=== PATIENT | female | born 1980 | race Caucasian/White ===

== ENCOUNTER 2017-02-22 14:06 | Emergency (ER) | payer OTHER ==
[2017-02-22] MEDS ORDERED: Ketorolac 30 MG/ML SDV IVPUSH ONE (14:28)
[2017-02-22] MEDS ORDERED: Sodium Chloride 0.9% 1,000 ML IV ONE (14:28)
[2017-02-22] MEDS ORDERED: Ondansetron 4 MG/2 ML SDV IVPUSH ONE (14:28)
[2017-02-22] MEDS ORDERED: HYDROmorphone 1 MG/ML Syringe IVPUSH ONE (14:28)
--- NOTE | 2017-02-22 14:36 | EDM.PDOC ---
ED HPI GENERAL MEDICAL PROBLEM - General Chief Complaint: Abdominal Pain Stated Complaint: ABDOMINAL PAIN Time Seen by Provider: 02/22/17 14:10 - History of Present Illness INITIAL COMMENTS - FREE TEXT/NARRATIVE: HISTORY AND PHYSICAL: History of present illness: Patient's age 36-year-old white female presents with concern of significant upper abdominal pain who was sent here by her private medical doctor for reevaluation patient to have outpatient labs that were remarkable for slight leukocytosis with a white count of 15,000 reportedly normal amylase lipase UA and CT abdomen without contrast. Patient is status post cholecystectomy approximately 6 months prior she denies other surgeries and denies similar episodes prior to no reported fever chills nausea vomiting Review of systems: As per history of present illness and below otherwise all systems reviewed and negative. Past medical history: As per history of present illness and as reviewed below otherwise noncontributory. Surgical history: As per history of present illness and as reviewed below otherwise noncontributory. Social history: No reported history of drug or alcohol abuse. Family history: As per history of present illness and as reviewed below otherwise noncontributory. Physical exam: HEENT: Atraumatic, normocephalic, pupils reactive, negative for conjunctival pallor or scleral icterus, mucous membranes moist, throat clear, neck supple, nontender, trachea midline. Lungs: Clear to auscultation, breath sounds equal bilaterally, chest nontender. Heart: S1S2, regular, negative for clicks, rubs, or JVD. Abdomen: Soft, nondistended, nonlocalized tenderness across the upper abdomen no rebound no guarding. Negative for masses or hepatosplenomegaly. Negative for costovertebral tenderness. Pelvis: Stable nontender. Genitourinary: Deferred. Rectal: Deferred. Extremities: Atraumatic, negative for cords or calf pain. Neurovascular unremarkable. Neuro: Awake, alert, oriented. Cranial nerves II through XII unremarkable. Cerebellum unremarkable. Motor and sensory unremarkable throughout. Exam nonfocal. Diagnostics: CBC hCG ultrasound right upper quadrant Therapeutics: Normal saline 1 L bolus Zofran 4 mg IV Dilaudid 1 mg IV Toradol 30 mg IV Impression: #1 abdominal pain #2 leukocytosis Definitive disposition and diagnosis as appropriate pending reevaluation and review of above. Epigastric Pain Score (Numeric/FACES): 10 - Related Data Allergies Allergy/AdvReac Type Severity Reaction Status Date / Time No Known Allergies Allergy Verified 10/03/15 09:22 Home Meds: Home Meds DULoxetine [Cymbalta] 30 mg PO DAILY 02/04/16 [History] Omeprazole Magnesium [Prilosec Otc] 20 mg PO DAILY 02/04/16 [History] Loratadine [Claritin] 1 tab PO DAILY PRN 04/11/16 [History] Gabapentin [Neurontin] 300 mg PO BEDTIME 02/22/17 [History] buPROPion HCl [Wellbutrin Xl] 300 mg PO DAILY 02/22/17 [History] Past Medical History Cardiovascular History: Reports: None Respiratory History: Reports: None Gastrointestinal History: Reports: Cholelithiasis, GERD 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: Musculoskeletal History: Reports: Back pain, chronic, Fracture Neurological History: Reports: None Psychiatric History: Reports: Anxiety, Depression Endocrine/Metabolic History: Reports: Obesity/BMI 30+, Other (see below) Other Endocrine/Metabolic History: low blood surgar at times Hematologic History: Reports: None Immunologic History: Reports: None Dermatologic History: Reports: None - Past Surgical History Other GI Surgeries/Procedures: hx exc of pilonidal cyst Other Oncologic Surgeries/Procedures: hx lymph node bx x2 Social & Family History - Family History Family Medical History: Noncontributory - Tobacco Use Smoking Status *Q: Current Every Day Smoker (1/2-1 ppd) Years of Tobacco use: 15 Packs/Tins Daily: 1 - Recreational Drug Use Recreational Drug Use: No Drug Use in Last 12 Months: No ED ROS GENERAL - Review of Systems Review Of Systems: ROS reveals no pertinent complaints other than HPI. ED EXAM, GENERAL - Physical Exam Exam: See Below (See dictation) Course - Vital Signs Last Recorded V/S: Last Vital Signs Temp 36.8 C 02/22/17 14:16 Pulse 88 02/22/17 15:49 Resp 16 02/22/17 15:49 BP 120/76 02/22/17 15:49 Pulse Ox 99 02/22/17 15:49 - Orders/Labs/Meds Labs: Laboratory Tests 02/22/17 02/22/17 Range/Units 14:39 14:39 WBC 14.04 H (4.0-11.0) K/uL RBC 4.99 (4.30-5.90) M/uL Hgb 15.0 (12.0-16.0) g/dL Hct 45.5 (36.0-46.0) % MCV 91.2 (80.0-98.0) fL MCH 30.1 (27.0-32.0) pg MCHC 33.0 (31.0-37.0) g/dL RDW Std Deviation 43.2 (28.0-62.0) fl RDW Coeff of Gaby 13 (11.0-15.0) % Plt Count 246 (150-400) K/uL MPV 12.60 H (7.40-12.00) fL Neut % (Auto) 75.2 (48.0-80.0) % Lymph % (Auto) 17.1 (16.0-40.0) % [place] % (Auto) 5.6 (0.0-15.0) % Eos % (Auto) 1.7 (0.0-7.0) % Baso % (Auto) 0.4 (0.0-1.5) % Neut # (Auto) 10.6 H (1.4-5.7) K/uL Lymph # (Auto) 2.4 (0.6-2.4) K/uL [place] # (Auto) 0.8 (0.0-0.8) K/uL Eos # (Auto) 0.2 (0.0-0.7) K/uL Baso # (Auto) 0.1 (0.0-0.1) K/uL Nucleated RBC % 0.0 /100WBC Nucleated RBCs # 0 K/uL HCG, Qual NEGATIVE (NEG) Meds: Medications Discontinued Medications Generic Name Dose Route Start Last Admin Trade Name Freq PRN Reason Stop Dose Admin Hydromorphone HCl 1 mg 02/22/17 14:28 02/22/17 15:04 Dilaudid IVPUSH 02/22/17 14:29 1 mg ONETIME ONE Administration Sodium Chloride 1,000 mls @ 999 mls/hr 02/22/17 14:28 02/22/17 14:58 Normal Saline IV 02/22/17 15:28 999 mls/hr .Bolus ONE Administration Ketorolac Tromethamine 30 mg 02/22/17 14:28 02/22/17 15:02 Toradol IVPUSH 02/22/17 14:29 30 mg ONETIME ONE Administration Ondansetron HCl 4 mg 02/22/17 14:28 02/22/17 15:01 Zofran IVPUSH 02/22/17 14:29 4 mg ONETIME ONE Administration Departure - Departure Time of Disposition: 18:28 Disposition: Home, Self-Care 01 Condition: good Clinical Impression: Abdominal pain Forms: ED Department Discharge Additional Instructions: The following information is given to patients seen in the emergency department who are being discharged to home. This information is to outline your options for follow-up care. We provide all patients seen in our emergency department with a follow-up referral. The need for follow-up, as well as the timing and circumstances, are variable depending upon the specifics of your emergency department visit. If you don't have a primary care physician on staff, we will provide you with a referral. We always advise you to contact your personal physician following an emergency department visit to inform them of the circumstance of the visit and for follow-up with them and/or the need for any referrals to a consulting specialist. The emergency department will also refer you to a specialist when appropriate. This referral assures that you have the opportunity for followup care with a specialist. All of these measure are taken in an effort to provide you with optimal care, which includes your followup. Under all circumstances we always encourage you to contact your private physician who remains a resource for coordinating your care. When calling for followup care, please make the office aware that this follow-up is from your recent emergency room visit. If for any reason you are refused follow-up, please contact the [facility] emergency department at and asked to speak to the emergency department charge nurse. [facility] Specialty Care - General Surgery Professional Building [address] [place] [address], [address] [place] [address] Conte followup as discussed return as needed
--- NOTE | 2017-02-22 16:18 | US ---
EXAMINATION: Right upper quadrant ultrasound HISTORY: Pain COMPARISON: CT from the same day TECHNIQUE: Grayscale and color Doppler images obtained of the right upper quadrant. FINDINGS: The visualized pancreas appears normal. The liver is normal in contour, echogenicity, and size without a focal hepatic mass. Cholecystectomy. The right kidney measures 13.4 cm [id number] w ithout evidence of hydronephrosis. There is normal color Doppler flow within the right kidney. The c ommon bile duct measures 2 to 3 mm. No abdominal ascites. IMPRESSION: No acute findings demonstrated within the right upper quadrant.
[2017-02-22 19:37] VITALS: BP 147/62
--- NOTE | 2017-02-23 01:26 | CONS ---
DATE OF CONSULTATION: 02/22/2017 DATE OF : 1980 PRIMARY CARE PHYSICIAN: FRANCISCO Shaw Consult was called, the patient was seen shortly after, and consulting question is acute onset of right upper quadrant pain. 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 Denied any radiation to the back. Denied nausea and vomiting. The patient has a low-grade temp of 99 and well-formed bowel movement the day before. No diarrhea. Pain is like 7-8/10, well localized in the right lower quadrant and for about 4- to 5-hour history, the patient was at work. The patient remarked she was doing absolutely fine the day before. The patient is scheduled to go out of town after work today. The patient had her gallbladder removed 9 months ago laparoscopically for mild chronic on acute cholecystitis. No gallstones found. The patient remarked that the current pain is absolutely different than the pain from the gallbladder surgery. The patient also remarked that right after gallbladder surgery she did very well until now. Denied hematemesis. Denied bright red blood per rectum. The patient never had any endoscopy done in the past. PAST MEDICAL HISTORY: Significant for no diabetes, NH, CVA, hypertension. PAST SURGICAL HISTORY: Normal vaginal delivery x2, x2, perioral abscess removed in the past, and a prominent lymph node biopsy in the past in the neck. SOCIAL HISTORY: The patient was a former smoker and stopped smoking 6 months ago. Denies alcohol use. REVIEW OF SYSTEMS: Same as history of present illness. FAMILY HISTORY: No family history of malignancy. PHYSICAL EXAMINATION: GENERAL: A very pleasant nice lady, lying in bed, in no acute distress. Of note, the patient already received 1 mg of IV Dilaudid. HEENT: Normocephalic, atraumatic. Sclerae anicteric. LUNGS: Clear to auscultation. HEART: Regular rate and rhythm. ABDOMEN: Soft, nondistended. No pulsating, tender midline abdominal structure. No percussion tenderness. No rebound tenderness. A little bit mild, not comfortable at about little bit to the right of the umbilicus. The patient is able to sit up from a stretcher in a very risky manner and able to walk around in the room and jump up and down without any complaint. LABORATORY DATA: White count 14. IMAGING DATA: CT scan of no acute abdomen process, except there is a very strange possible lymph node right below the belly button 15 mm x 12 mm. Ultrasound has no finding either. IMPRESSION: Acute onset of abdominal pain of very short duration. It may sound pretty resolving fast; however, we were unable to find out the etiology and the patient asked whether she can feel trouble all the time and the answer is no. She was expecting to be on a train to go out of town. Since we are not able to find out anything, I prefer her to stay home and only have general liquid diet. I will follow up with her on Saturday office and she probably would benefit from endoscopy study and also CLINICAL STAFF ANESTHESIOLOGIST workup. From examination and from imaging study and from blood work, the patient is not having any signs or symptoms of acute abdomen situation. The patient also had been told if it happens again, seek help back to the emergency room. The patient voiced understanding. We will start her on a little bit of antibiotic and some pain medication and follow up on Saturday. DIAGNOSIS: Abdominal pain, atypical. As always, thank you for the kind referral. YVES PARK /[id number]
== END 2017-02-22 18:50 | disposition home or self-care (01) ==
LOC: MW.ED 14:06
DX: R10.10 Upper abdominal pain, unspecified (principal); D72.829 Elevated white blood cell count, unspecified; K21.9 Gastro-esophageal reflux disease without esophagitis; F32.9 Major depressive disorder, single episode, unspecified; F17.210 Nicotine dependence, cigarettes, uncomplicated; Z79.899 Other long term (current) drug therapy
CPT/HCPCS: 36415; 76705; 84703; 85025; 96361; 96374; 96375; 99284; J1170; J1885; J2405; J7040; 74176; 74176-26; 80053; 81001; 82150; 83690

== ENCOUNTER 2017-02-23 08:42 | Day surgery (SDC) | payer OTHER ==
--- NOTE | 2017-02-23 09:18 | EDM.PDOC ---
ED HPI GENERAL MEDICAL PROBLEM - General Chief Complaint: Abdominal Pain Stated Complaint: ABD PAIN Time Seen by Provider: 02/23/17 09:16 Source of Information: Reports: Patient - History of Present Illness INITIAL COMMENTS - FREE TEXT/NARRATIVE: HISTORY AND PHYSICAL: History of present illness: [] Patient presents with abdominal pain which was intermittent yesterday, currently constant she has had one episode of vomiting she remains nauseous Discussed patient with Dr. Delbert Conte, he requests IV and oral CT as the patient has had previous CT and ultrasound imaging on file which was negative, clinically significant appendix exam is as discussed with Dr. Conte No fever chills sweats Review of systems: As per history of present illness and below otherwise all systems reviewed and negative. Past medical history: As per history of present illness and as reviewed below otherwise noncontributory. Surgical history: As per history of present illness and as reviewed below otherwise noncontributory. Social history: No reported history of drug or alcohol abuse. Family history: As per history of present illness and as reviewed below otherwise noncontributory. Physical exam: HEENT: Atraumatic, normocephalic, pupils reactive, negative for conjunctival pallor or scleral icterus, mucous membranes moist, throat clear, neck supple, nontender, trachea midline. Lungs: Clear to auscultation, breath sounds equal bilaterally, chest nontender. Heart: S1S2, regular, negative for clicks, rubs, or JVD. Abdomen: Soft, nondistended, significant right lower quadrant pain with guarding. Negative for masses or hepatosplenomegaly. Negative for costovertebral tenderness. Pelvis: Stable nontender. Genitourinary: Deferred. Rectal: Deferred. Extremities: Atraumatic, negative for cords or calf pain. Neurovascular unremarkable. Neuro: Awake, alert, oriented. Cranial nerves II through XII unremarkable. Cerebellum unremarkable. Motor and sensory unremarkable throughout. Exam nonfocal. Diagnostics: [] Lab as below CT abdomen pelvis with IV and oral contrast Therapeutics: [] Liter normal saline fluid Zofran [address] Conte has been in and evaluated the patient ;he and the patient elected to go further and perform a appendectomy Impression: [] Abdominal pain/clinical appendicitis Definitive disposition and diagnosis as appropriate pending reevaluation and review of above. abdomen Pain Score (Numeric/FACES): 8 - Related Data Allergies Allergy/AdvReac Type Severity Reaction Status Date / Time No Known Allergies Allergy Verified 02/23/17 08:51 Home Meds: Home Meds DULoxetine [Cymbalta] 30 mg PO DAILY 02/04/16 [History] Omeprazole Magnesium [Prilosec Otc] 20 mg PO DAILY 02/04/16 [History] Loratadine [Claritin] 1 tab PO DAILY PRN 04/11/16 [History] Gabapentin [Neurontin] 300 mg PO BEDTIME 02/22/17 [History] buPROPion HCl [Wellbutrin Xl] 300 mg PO DAILY 02/22/17 [History] Past Medical History Cardiovascular History: Reports: None Respiratory History: Reports: None Gastrointestinal History: Reports: Cholelithiasis, GERD 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: Musculoskeletal History: Reports: Back pain, chronic, Fracture Neurological History: Reports: None Psychiatric History: Reports: Anxiety, Depression Endocrine/Metabolic History: Reports: Obesity/BMI 30+, Other (see below) Other Endocrine/Metabolic History: low blood surgar at times Hematologic History: Reports: None Immunologic History: Reports: None Dermatologic History: Reports: None - Past Surgical History Head Surgeries/Procedures: Reports: None HEENT Surgical History: Reports: LASIK GI Surgical History: Reports: Cholecystectomy Other GI Surgeries/Procedures: hx exc of pilonidal cyst Female Surgical History: Reports: section Other Oncologic Surgeries/Procedures: hx lymph node bx x2 Social & Family History - Family History Family Medical History: Noncontributory - Tobacco Use Smoking Status *Q: Former Smoker Years of Tobacco use: 15 Packs/Tins Daily: 1 Used Tobacco, but Quit: Yes Month Tobacco Last Used: 6 - Caffeine Use Caffeine Use: Reports: Coffee Caffeine Use Comment: 12 cups avg per day - Recreational Drug Use Recreational Drug Use: No Drug Use in Last 12 Months: No ED ROS GENERAL - Review of Systems Review Of Systems: ROS reveals no pertinent complaints other than HPI. ED EXAM, GENERAL - Physical Exam Exam: See Below Course - Vital Signs Last Recorded V/S: Last Vital Signs Temp 36.8 C 02/23/17 08:53 Pulse 99 02/23/17 11:54 Resp 20 02/23/17 08:53 BP 130/87 02/23/17 11:54 Pulse Ox 96 02/23/17 08:53 - Orders/Labs/Meds Orders: Active Orders 24 hr Category Date Time Status Abdomen Pelvis w Cont [CT] Stat Exams 02/23/17 09:16 Taken Labs: Laboratory Tests 02/23/17 02/23/17 02/23/17 Range/Units 09:05 09:05 09:25 WBC 7.92 (4.0-11.0) K/uL RBC 4.54 (4.30-5.90) M/uL Hgb 13.8 (12.0-16.0) g/dL Hct 41.0 (36.0-46.0) % MCV 90.3 (80.0-98.0) fL MCH 30.4 (27.0-32.0) pg MCHC 33.7 (31.0-37.0) g/dL RDW Std Deviation 43.0 (28.0-62.0) fl RDW Coeff of Gaby 13 (11.0-15.0) % Plt Count 221 (150-400) K/uL MPV 12.40 H (7.40-12.00) fL Neut % (Auto) 60.3 (48.0-80.0) % Lymph % (Auto) 26.4 (16.0-40.0) % [place] % (Auto) 9.8 (0.0-15.0) % Eos % (Auto) 3.0 (0.0-7.0) % Baso % (Auto) 0.5 (0.0-1.5) % Neut # (Auto) 4.8 (1.4-5.7) K/uL Lymph # (Auto) 2.1 (0.6-2.4) K/uL [place] # (Auto) 0.8 (0.0-0.8) K/uL Eos # (Auto) 0.2 (0.0-0.7) K/uL Baso # (Auto) 0.0 (0.0-0.1) K/uL Nucleated RBC % 0.0 /100WBC Nucleated RBCs # 0 K/uL Sodium (136-146) mmol/L Potassium (3.5-5.1) mmol/L Chloride (98-110) mmol/L Carbon Dioxide (21-31) mmol/L BUN (6.0-23.0) mg/dL Creatinine (0.6-1.5) mg/dL Est Cr Clr Drug Dosing mL/min Estimated GFR (MDRD) ml/min Glucose (60-110) mg/dL Calcium (8.8-10.8) mg/dL Total Bilirubin (0.1-1.5) mg/dL AST (5-40) IU/L ALT (8-54) IU/L Alkaline Phosphatase (40-150) Total Protein (6.0-8.0) g/dL Albumin (3.5-5.0) g/dL Globulin (2.0-3.5) g/dL Albumin/Globulin Ratio (1.3-2.8) Amylase (10-90) U/L Lipase (7-80) U/L Urine Color YELLOW Urine Appearance CLEAR Urine pH 5.5 (5.0-8.0) Ur Specific [place] 1.010 (1.001-1.035) Urine Protein NEGATIVE (NEGATIVE) mg/dL Urine Glucose (UA) NEGATIVE (NEGATIVE) mg/dL Urine Ketones 15 H (NEGATIVE) mg/dL Urine Occult Blood NEGATIVE (NEGATIVE) Urine Nitrite NEGATIVE (NEGATIVE) Urine Bilirubin NEGATIVE (NEGATIVE) Urine Urobilinogen 0.2 (<2.0) EU/dL Ur Leukocyte Esterase NEGATIVE (NEGATIVE) Urine RBC 0-2 (0-2/HPF) Urine WBC 1-3 (0-5/HPF) Ur Epithelial Cells FEW (NONE-FEW) Urine Bacteria FEW (NEGATIVE) Urine HCG, Qual NEGATIVE (NEGATIVE) 02/23/17 Range/Units 09:25 WBC (4.0-11.0) K/uL RBC (4.30-5.90) M/uL Hgb (12.0-16.0) g/dL Hct (36.0-46.0) % MCV (80.0-98.0) fL MCH (27.0-32.0) pg MCHC (31.0-37.0) g/dL RDW Std Deviation (28.0-62.0) fl RDW Coeff of Gaby (11.0-15.0) % Plt Count (150-400) K/uL MPV (7.40-12.00) fL Neut % (Auto) (48.0-80.0) % Lymph % (Auto) (16.0-40.0) % [place] % (Auto) (0.0-15.0) % Eos % (Auto) (0.0-7.0) % Baso % (Auto) (0.0-1.5) % Neut # (Auto) (1.4-5.7) K/uL Lymph # (Auto) (0.6-2.4) K/uL [place] # (Auto) (0.0-0.8) K/uL Eos # (Auto) (0.0-0.7) K/uL Baso # (Auto) (0.0-0.1) K/uL Nucleated RBC % /100WBC Nucleated RBCs # K/uL Sodium 139 (136-146) mmol/L Potassium 3.8 (3.5-5.1) mmol/L Chloride 109 (98-110) mmol/L Carbon Dioxide 20 L (21-31) mmol/L BUN 9 (6.0-23.0) mg/dL Creatinine 0.8 (0.6-1.5) mg/dL Est Cr Clr Drug Dosing 94.54 mL/min Estimated GFR (MDRD) > 60.0 ml/min Glucose 73 (60-110) mg/dL Calcium 8.5 L (8.8-10.8) mg/dL Total Bilirubin 0.7 (0.1-1.5) mg/dL AST 15 (5-40) IU/L ALT 12 (8-54) IU/L Alkaline Phosphatase 68 (40-150) Total Protein 6.8 (6.0-8.0) g/dL Albumin 4.0 (3.5-5.0) g/dL Globulin 2.8 (2.0-3.5) g/dL Albumin/Globulin Ratio 1.4 (1.3-2.8) Amylase 44 (10-90) U/L Lipase 11 (7-80) U/L Urine Color Urine Appearance Urine pH (5.0-8.0) Ur Specific [place] (1.001-1.035) Urine Protein (NEGATIVE) mg/dL Urine Glucose (UA) (NEGATIVE) mg/dL Urine Ketones (NEGATIVE) mg/dL Urine Occult Blood (NEGATIVE) Urine Nitrite (NEGATIVE) Urine Bilirubin (NEGATIVE) Urine Urobilinogen (<2.0) EU/dL Ur Leukocyte Esterase (NEGATIVE) Urine RBC (0-2/HPF) Urine WBC (0-5/HPF) Ur Epithelial Cells (NONE-FEW) Urine Bacteria (NEGATIVE) Urine HCG, Qual (NEGATIVE) Meds: Medications Discontinued Medications Generic Name Dose Route Start Last Admin Trade Name Jamal PRN Reason Stop Dose Admin Iopamidol 100 ml 02/23/17 11:56 02/23/17 11:57 Isovue Multipack-370 (76%) IVPUSH 02/23/17 11:57 100 ml ONETIME STA Administration Departure - Departure Time of Disposition: 13:59 Disposition: Admitted As Inpatient 66 Condition: fair Clinical Impression: Abdominal pain Referrals: PCP,None [Primary Care Provider] - Forms: ED Department Discharge - My Orders Last 24 Hours: My Active Orders 02/23/17 09:16 Abdomen Pelvis w Cont [CT] Stat - Assessment/Plan Last 24 Hours: My Active Orders 02/23/17 09:16 Abdomen Pelvis w Cont [CT] Stat
[2017-02-23 10:01] LABS: CHLORIDE,CL 109 mmol/L (98-110); SODIUM,NA 139 mmol/L (136-146)
[2017-02-23] MEDS ORDERED: Iopamidol 755 MG/ML 500 ML Multipack Bottle IVPUSH STA (11:56)
[2017-02-23] MEDS ORDERED: Midazolam 1 MG/ML 2 ML SDV ONE (14:11)
[2017-02-23] MEDS ORDERED: fentaNYL 250 MCG/5 ML SDV ONE (14:11)
[2017-02-23] MEDS ORDERED: Lidocaine 2% 5 ML SDV ONE (14:11)
[2017-02-23] MEDS ORDERED: Propofol 200 MG/20 ML SDV ONE (14:11)
[2017-02-23] MEDS ORDERED: Succinylcholine/Normal Saline 200 MG/10 ML Syringe ONE (14:11)
[2017-02-23] MEDS ORDERED: Dexamethasone 4 MG/ML 5 ML MDV ONE (14:11)
[2017-02-23] MEDS ORDERED: Ondansetron 4 MG/2 ML SDV ONE (14:11)
[2017-02-23] MEDS ORDERED: Rocuronium 10 MG/ML 10 ML Syringe ONE (14:11)
[2017-02-23] MEDS ORDERED: Bupivacaine 0.25%/EPINEPHrine 1:200,000 10 ML SDV ONE (14:14)
[2017-02-23] MEDS ORDERED: Lactated Ringers 1,000 ML IV SCH ×2 (14:15→14:30)
--- NOTE | 2017-02-23 14:16 | PCM.SN ---
- Free Text/Narrative Note: admitting h/p dictated, [id number]; clinical appendicitis, will proceed w appendectomy, lap vs open; risks and benefits dw pt re bleeding, infection, damage to nearby organs/postop course, pt concurs, and proceed with surgery;
[2017-02-23] MEDS ORDERED: cefOXitin 2 GM in Premix Bag 1 BAG IV ONE (14:17)
--- NOTE | 2017-02-23 14:27 | PCM.PREANE ---
Preanesthetic Assessment - Anesthesia/Transfusion/Family Hx Anesthesia History: Prior Anesthesia Without Reaction Family History of Anesthesia Reaction: No Transfusion History: No Prior Transfusion(s) - Review of Systems General: No Symptoms Pulmonary: No Symptoms Cardiovascular: No Symptoms Gastrointestinal: Abdominal pain, Decreased appetite, Nausea Neurological: No Symptoms Other: Reports: None - Physical Assessment NPO Status Date: 02/23/17 NPO Status Time: 11:30 O2 Sat by Pulse Oximetry: 95 Respiratory Rate: 20 Vital Signs: Last Vital Signs Temp 36.9 C 02/23/17 14:16 Pulse 104 H 02/23/17 14:16 Resp 20 02/23/17 14:16 BP 134/93 H 02/23/17 14:16 Pulse Ox 95 02/23/17 14:16 Height: 5 ft 7 in Weight: 108 kg ASA Class: 2E Mental Status: Alert & Oriented x3 Airway Class: Mallampati = 2 Dentition: Reports: Normal Dentition Thyro-Mental Finger Breadths: 3 Mouth Opening Finger Breadths: 3 ROM/Head Extension: Full Lungs: Clear to auscultation Cardiovascular: Regular Rate - Lab Values: Laboratory Last Values WBC 7.92 K/uL (4.0-11.0) 02/23/17 09:25 RBC 4.54 M/uL (4.30-5.90) 02/23/17 09:25 Hgb 13.8 g/dL (12.0-16.0) 02/23/17 09:25 Hct 41.0 % (36.0-46.0) 02/23/17 09:25 MCV 90.3 fL (80.0-98.0) 02/23/17 09:25 MCH 30.4 pg (27.0-32.0) 02/23/17 09:25 MCHC 33.7 g/dL (31.0-37.0) 02/23/17 09:25 RDW Std Deviation 43.0 fl (28.0-62.0) 02/23/17 09:25 RDW Coeff of Gaby 13 % (11.0-15.0) 02/23/17 09:25 Plt Count 221 K/uL (150-400) 02/23/17 09:25 MPV 12.40 fL (7.40-12.00) H 02/23/17 09:25 Neut % (Auto) 60.3 % (48.0-80.0) 02/23/17 09:25 Lymph % (Auto) 26.4 % (16.0-40.0) 02/23/17 09:25 [place] % (Auto) 9.8 % (0.0-15.0) 02/23/17 09:25 Eos % (Auto) 3.0 % (0.0-7.0) 02/23/17 09:25 Baso % (Auto) 0.5 % (0.0-1.5) 02/23/17 09:25 Neut # (Auto) 4.8 K/uL (1.4-5.7) 02/23/17 09:25 Lymph # (Auto) 2.1 K/uL (0.6-2.4) 02/23/17 09:25 [place] # (Auto) 0.8 K/uL (0.0-0.8) 02/23/17 09:25 Eos # (Auto) 0.2 K/uL (0.0-0.7) 02/23/17 09:25 Baso # (Auto) 0.0 K/uL (0.0-0.1) 02/23/17 09:25 Nucleated RBC % 0.0 /100WBC 02/23/17 09:25 Nucleated RBCs # 0 K/uL 02/23/17 09:25 Sodium 139 mmol/L (136-146) 02/23/17 09:25 Potassium 3.8 mmol/L (3.5-5.1) 02/23/17 09:25 Chloride 109 mmol/L (98-110) 02/23/17 09:25 Carbon Dioxide 20 mmol/L (21-31) L 02/23/17 09:25 BUN 9 mg/dL (6.0-23.0) 02/23/17 09:25 Creatinine 0.8 mg/dL (0.6-1.5) 02/23/17 09:25 Est Cr Clr Drug Dosing 94.54 mL/min 02/23/17 09:25 Estimated GFR (MDRD) > 60.0 ml/min 02/23/17 09:25 Glucose 73 mg/dL (60-110) 02/23/17 09:25 Calcium 8.5 mg/dL (8.8-10.8) L 02/23/17 09:25 Total Bilirubin 0.7 mg/dL (0.1-1.5) 02/23/17 09:25 AST 15 IU/L (5-40) 02/23/17 09:25 ALT 12 IU/L (8-54) 02/23/17 09:25 Alkaline Phosphatase 68 (40-150) 02/23/17 09:25 Total Protein 6.8 g/dL (6.0-8.0) 02/23/17 09:25 Albumin 4.0 g/dL (3.5-5.0) 02/23/17 09:25 Globulin 2.8 g/dL (2.0-3.5) 02/23/17 09:25 Albumin/Globulin Ratio 1.4 (1.3-2.8) 02/23/17 09:25 Amylase 44 U/L (10-90) 02/23/17 09:25 Lipase 11 U/L (7-80) 02/23/17 09:25 Urine Color YELLOW 02/23/17 09:05 Urine Appearance CLEAR 02/23/17 09:05 Urine pH 5.5 (5.0-8.0) 02/23/17 09:05 Ur Specific [place] 1.010 (1.001-1.035) 02/23/17 09:05 Urine Protein NEGATIVE mg/dL (NEGATIVE) 02/23/17 09:05 Urine Glucose (UA) NEGATIVE mg/dL (NEGATIVE) 02/23/17 09:05 Urine Ketones 15 mg/dL (NEGATIVE) H 02/23/17 09:05 Urine Occult Blood NEGATIVE (NEGATIVE) 02/23/17 09:05 Urine Nitrite NEGATIVE (NEGATIVE) 02/23/17 09:05 Urine Bilirubin NEGATIVE (NEGATIVE) 02/23/17 09:05 Urine Urobilinogen 0.2 EU/dL (<2.0) 02/23/17 09:05 Ur Leukocyte Esterase NEGATIVE (NEGATIVE) 02/23/17 09:05 Urine RBC 0-2 (0-2/HPF) 02/23/17 09:05 Urine WBC 1-3 (0-5/HPF) 02/23/17 09:05 Ur Epithelial Cells FEW (NONE-FEW) 02/23/17 09:05 Urine Bacteria FEW (NEGATIVE) 02/23/17 09:05 Urine HCG, Qual NEGATIVE (NEGATIVE) 02/23/17 09:05 - Allergies Allergies/Adverse Reactions: Allergies Allergy/AdvReac Type Severity Reaction Status Date / Time No Known Allergies Allergy Verified 02/23/17 08:51 - Blood Blood Available: No - Acknowledgements Anesthesia Type Planned: General Anesthesia (GETA risks explained including aspiration due to recent oral contrast) Pt an Appropriate Candidate for the Planned Anesthesia: Yes Alternatives and Risks of Anesthesia Discussed w Pt/Guardian: Yes Pt/Guardian Understands and Agrees with Anesthesia Plan: Yes PreAnesthesia Questionnaire Cardiovascular History: Reports: None Respiratory History: Reports: None Gastrointestinal History: Reports: Cholelithiasis, 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: Musculoskeletal History: Reports: Back pain, chronic, Fracture Neurological History: Reports: None Psychiatric History: Reports: Anxiety, Depression Endocrine/Metabolic History: Reports: Obesity/BMI 30+, Other (see below) Other Endocrine/Metabolic History: low blood surgar at times Hematologic History: Reports: None Immunologic History: Reports: None Dermatologic History: Reports: None - Past Surgical History Head Surgeries/Procedures: Reports: None HEENT Surgical History: Reports: LASIK GI Surgical History: Reports: Cholecystectomy Other GI Surgeries/Procedures: hx exc of pilonidal cyst Female Surgical History: Reports: section Other Oncologic Surgeries/Procedures: hx lymph node bx x2 - SUBSTANCE USE Smoking Status *Q: Former Smoker Tobacco Use Within Last Twelve Months: Cigarettes Recreational Drug Use History: No - HOME MEDS Home Medications: Home Meds DULoxetine [Cymbalta] 30 mg PO DAILY 02/04/16 [History] Omeprazole Magnesium [Prilosec Otc] 20 mg PO DAILY 02/04/16 [History] Loratadine [Claritin] 1 tab PO DAILY PRN 04/11/16 [History] Gabapentin [Neurontin] 300 mg PO BEDTIME 02/22/17 [History] buPROPion HCl [Wellbutrin Xl] 300 mg PO DAILY 02/22/17 [History] - CURRENT (IN HOUSE) MEDS Current Meds: Current Medications Lactated Ringer's (Ringers, Lactated) 1,000 mls @ 10 drops/min IV ASDIRECTED [facility] Last Admin: 02/23/17 14:10 Dose: 10 drops/min Lactated Ringer's (Ringers, Lactated) 1,000 mls @ 125 mls/hr IV ASDIRECTED [facility] Cefoxitin Sodium 2 gm/ Premix 50 mls @ 100 mls/hr IV ONETIME ONE Stop: 02/23/17 14:46 Discontinued Medications Bupivacaine HCl/Epinephrine Bitart (Marcaine 0.25%/Epinephrine 1:200,000) Confirm Administered Dose 30 ml .ROUTE .STK-MED ONE Stop: 02/23/17 14:15 Dexamethasone (Dexamethasone) Confirm Administered Dose 20 mg .ROUTE .STK-MED ONE Stop: 02/23/17 14:12 Fentanyl (Sublimaze) Confirm Administered Dose 250 mcg .ROUTE .STK-MED ONE Stop: 02/23/17 14:12 Iopamidol (Isovue Multipack-370 (76%)) 100 ml IVPUSH ONETIME STA Stop: 02/23/17 11:57 Last Admin: 02/23/17 11:57 Dose: 100 ml Lidocaine (Xylocaine-Mpf 2%) Confirm Administered Dose 5 ml .ROUTE .STK-MED ONE Stop: 02/23/17 14:12 Midazolam HCl (Versed 1 Mg/Ml) Confirm Administered Dose 2 mg .ROUTE .STK-MED ONE Stop: 02/23/17 14:12 Ondansetron HCl (Zofran) Confirm Administered Dose 4 mg .ROUTE .STK-MED ONE Stop: 02/23/17 14:12 Propofol (Diprivan 20 Ml) Confirm Administered Dose 200 mg .ROUTE .STK-MED ONE Stop: 02/23/17 14:12 Rocuronium [place] (Zemuron) Confirm Administered Dose 100 mg .ROUTE .STK-MED ONE Stop: 02/23/17 14:12 Succinylcholine Chloride (Succinylcholine In Ns Pf) Confirm Administered Dose 200 mg .ROUTE .STK-MED ONE Stop: 02/23/17 14:12
[2017-02-23] MEDS ORDERED: HYDROmorphone 2 MG/ML Syringe ONE (14:47)
[2017-02-23] MEDS ORDERED: Neostigmine Methylsulfate 1 MG/ML 5 ML Syringe ONE (15:22)
[2017-02-23] MEDS ORDERED: Ketorolac 30 MG/ML SDV ONE (15:43)
[2017-02-23] MEDS ORDERED: Octyl 2-Cyanoacrylate 1 Tube ONE (15:48)
--- NOTE | 2017-02-23 16:08 | PCM.OPNOTE ---
- General Post-Op/Procedure Note Date of Surgery/Procedure: 02/23/17 Operative Procedure(s): 1) lap appendectomy. 2) lap excisional biopsy of deep abd wall mass Findings: 1) appendix is hyperemic, and indulated, hardened, cw acute appendicitis; gross perf was not observed 2) peritoneal fluid is dark, homero brown 3) r ovary w cyst 4) st mass seen in ct was a well encapsulated mass attached to abd wall peritoneum; excisional biopsy done [id number] Pre Op Diagnosis: acute appendicitis Post-Op Diagnosis: Same Anesthesia Technique: General ET tube Primary Surgeon: Joaquin Callahan Pathology: sent Condition: Fair
--- NOTE | 2017-02-23 16:36 | PCM.POSTAN ---
POST ANESTHESIA ASSESSMENT - MENTAL STATUS Mental Status: alert, oriented - RESPIRATORY Respiratory Status: respiratory rate WNL, airway patent, O2 saturation stable - CARDIOVASCULAR CV Status: pulse rate WNL, blood pressure stable - GASTROINTESTINAL GI Status: no symptoms - PAIN Pain Score: 0 - POST OP HYDRATION Hydration Status: adequate & stable
--- NOTE | 2017-02-23 17:36 | PCM48HPAN ---
Post Anesthesia Note - EVALUATION WITHIN 48HRS OF ANESTHETIC Vital Signs in Normal Range: Yes Patient Participated in Evaluation: Yes Respiratory Function Stable: Yes Airway Patent: Yes Cardiovascular Function Stable: Yes Hydration Status Stable: Yes Pain Control Satisfactory: Yes Nausea and Vomiting Control Satisfactory: Yes Mental Status Recovered: Yes
[2017-02-23] MEDS ORDERED: Sodium Chloride 0.9% 2.5 ML Syringe FLUSH PRN (19:08)
[2017-02-23] MEDS ORDERED: Sodium Chloride 0.9% 10 ML Syringe FLUSH PRN (19:08)
[2017-02-23] MEDS: Acetaminophen/oxyCODONE 325-10 MG Tab PO PRN (21:36)
[2017-02-24] MEDS: Acetaminophen/oxyCODONE 325-10 MG Tab PO PRN (05:42)
[2017-02-24 08:26] VITALS: BP 107/62
--- NOTE | 2017-02-24 10:34 | PCM.SURGPN ---
- General Info Date of Service: 02/24/17 - Review of Systems General: Reports: No Symptoms HEENT: Reports: no symptoms Gastrointestinal: Reports: No symptoms - Patient Data Vitals - most recent: Last Vital Signs Temp 98.2 F 02/24/17 08:25 Pulse 91 02/24/17 08:25 Resp 18 02/24/17 08:25 BP 107/62 02/24/17 08:25 Pulse Ox 96 02/24/17 08:25 Weight - most recent: 238 lb 1.588 oz I&O - last 24 hours: Intake & Output 02/23/17 02/24/17 02/24/17 22:59 06:59 14:59 Intake Total 2000 720 Output Total 600 2300 Balance 1400 -1580 Med Orders - Current: Current Medications Oxycodone/Acetaminophen (Percocet 325-10 Mg) 1 tab PO Q8H PRN PRN Reason: Pain Last Admin: 02/24/17 05:42 Dose: 1 tab Sodium Chloride (Saline Flush) 10 ml FLUSH ASDIRECTED PRN PRN Reason: Keep Vein Open Sodium Chloride (Saline Flush) 2.5 ml FLUSH ASDIRECTED PRN PRN Reason: Keep Vein Open Discontinued Medications Bupivacaine HCl/Epinephrine Bitart (Marcaine 0.25%/Epinephrine 1:200,000) Confirm Administered Dose 30 ml .ROUTE .STK-MED ONE Stop: 02/23/17 14:15 Dexamethasone (Dexamethasone) Confirm Administered Dose 20 mg .ROUTE .STK-MED ONE Stop: 02/23/17 14:12 Fentanyl (Sublimaze) Confirm Administered Dose 250 mcg .ROUTE .STK-MED ONE Stop: 02/23/17 14:12 Glycopyrrolate () Confirm Administered Dose 1 mg .ROUTE .STK-MED ONE Stop: 02/23/17 15:23 Hydromorphone HCl (Dilaudid) Confirm Administered Dose 2 mg .ROUTE .STK-MED ONE Stop: 02/23/17 14:48 Lactated Ringer's (Ringers, Lactated) 1,000 mls @ 10 drops/min IV ASDIRECTED [facility] Last Admin: 02/23/17 14:10 Dose: 10 drops/min Lactated Ringer's (Ringers, Lactated) 1,000 mls @ 125 mls/hr IV ASDIRECTED [facility] Cefoxitin Sodium 2 gm/ Premix 50 mls @ 100 mls/hr IV ONETIME ONE Stop: 02/23/17 14:46 Last Admin: 02/23/17 14:26 Dose: 100 mls/hr Cefoxitin Sodium (Mefoxin In Dextrose,Iso-Osm 2 Gm/50 Ml) Confirm Administered Dose 50 mls @ as directed .ROUTE .STK-MED ONE Stop: 02/23/17 16:10 Iopamidol (Isovue Multipack-370 (76%)) 100 ml IVPUSH ONETIME STA Stop: 02/23/17 11:57 Last Admin: 02/23/17 11:57 Dose: 100 ml Ketorolac Tromethamine (Toradol) Confirm Administered Dose 30 mg .ROUTE .STK- MED ONE Stop: 02/23/17 15:44 Lidocaine (Xylocaine-Mpf 2%) Confirm Administered Dose 5 ml .ROUTE .STK-MED ONE Stop: 02/23/17 14:12 Midazolam HCl (Versed 1 Mg/Ml) Confirm Administered Dose 2 mg .ROUTE .STK-MED ONE Stop: 02/23/17 14:12 Neostigmine Methylsulfate (Neostigmine) Confirm Administered Dose 5 mg .ROUTE .STK-MED ONE Stop: 02/23/17 15:23 Octyl Cyanoacrylate (Dermabond Advance) Confirm Administered Dose 1 applic .ROUTE .STK-MED ONE Stop: 02/23/17 15:49 Ondansetron HCl (Zofran) Confirm Administered Dose 4 mg .ROUTE .STK-MED ONE Stop: 02/23/17 14:12 Propofol (Diprivan 20 Ml) Confirm Administered Dose 200 mg .ROUTE .STK-MED ONE Stop: 02/23/17 14:12 Rocuronium [place] (Zemuron) Confirm Administered Dose 100 mg .ROUTE .STK-MED ONE Stop: 02/23/17 14:12 Succinylcholine Chloride (Succinylcholine In Ns Pf) Confirm Administered Dose 200 mg .ROUTE .STK-MED ONE Stop: 02/23/17 14:12 - Exam Wound/Incisions: dressing dry and intact, no drainage Abdomen: bowel sounds present, soft, no distension - Problem List Review Problem List Initiated/Reviewed/Updated: Yes - My Orders Last 24 Hours: Active Orders 24 hr Category Date Time Status Admission Status [Patient Status] [ADT] Routine ADT 02/23/17 16:44 Active Ready for Discharge [RC] PER UNIT ROUTINE Care 02/23/17 16:10 Active Verify Patient Consent Obtain [RC] ASDIRECTED Care 02/23/17 14:16 Active Full Liquid Diet [DIET] Diet 02/23/17 Dinner Active Acetaminophen/oxyCODONE [Percocet 325-10 MG] Med 02/23/17 16:10 Active 1 tab PO Q8H PRN Sodium Chloride 0.9% [Saline Flush] Med 02/23/17 19:08 Active 10 ml FLUSH ASDIRECTED PRN Sodium Chloride 0.9% [Saline Flush] Med 02/23/17 19:08 Active 2.5 ml FLUSH ASDIRECTED PRN Convert IV to Saline Lock [OM.PC] Routine Oth 02/23/17 19:08 Ordered Code Status [Resuscitation Status] Routine Resus Stat 02/24/17 10:27 Ordered Medication Orders Oxycodone/Acetaminophen (Percocet 325-10 Mg) 1 tab PO Q8H PRN PRN Reason: Pain Last Admin: 02/24/17 05:42 Dose: 1 tab Admin: 02/23/17 21:36 Dose: 1 tab Sodium Chloride (Saline Flush) 10 ml FLUSH ASDIRECTED PRN PRN Reason: Keep Vein Open Sodium Chloride (Saline Flush) 2.5 ml FLUSH ASDIRECTED PRN PRN Reason: Keep Vein Open - Assessment Assessment (Free Text/Narrative):: doing well postop, no co/f/c/n/v and radha po diet; wound cdi; home on pain script ; fu 1 - 2 wks; no heavy wt lifting X 3 wks - Plan Plan (Free Text/Narrative):: doing well postop, no co/f/c/n/v and radha po diet; wound cdi; home on pain script ; fu 1 - 2 wks; no heavy wt lifting X 3 wks
--- NOTE | 2017-02-25 10:00 | CT ---
EXAM DATE: 02/23/17 PATIENT'S AGE: 36 Patient: CATALINO BOYCE Facility: [place], [place] Site . Site : 1980 Study: CT Abdomen/Pelvis [id number]/22/2017 12:00:36 PM Ordering Physician: Abby Multani Final Report: HISTORY: Mid abdominal pain. TECHNIQUE: Intravenous and oral contrast enhanced CT of the abdomen and pelvis. 100 mL of Isovue-370 intravenous contrast administered. COMPARISON: CT 02/22/2017, ultrasound 02/22/2017. FINDINGS: There is fatty infiltration within the medial segment of the left hepatic lobe adjacent to the falciform ligament. There is no focal hepatic mass. Prior cholecystectomy. Biliary system is within normal limits for postcholecystectomy state. The spleen and adrenal glands are normal. There is no focal pancreatic abnormality or acute peripancreatic inflammatory change. . Symmetric nephrograms. There is no renal mass. There is mild renal pelviectasis bilaterally. No obstructive urinary calculus. Urinary bladder is not well evaluated by CT but appears grossly unremarkable. . The stomach and GE junction are not optimally evaluated by CT. There is no small bowel obstruction. No appendicitis. No diverticulitis. . As before, there is an approximately 1.1 x 1.5 cm nodular lesion within the anterior abdomen close to the umbilical region. This is seen on image #80 of series 201. This could be present within the omentum. It is adjacent to the transverse colon and a small bowel loop. Differential considerations include enlarged lymph node, omental tumor implant, hyperdense duplication cyst, versus other soft tissue neoplasm. At the least, followup is recommended. Tissue diagnosis could be considered. There are additional small nonenlarged by imaging criteria mesenteric and retroperitoneal lymph nodes. Small amount of free fluid within the pelvis. No localized collection. No free intraperitoneal air. Small fat containing umbilical hernia. No significant inguinal hernia. An IUD is present and appears appropriately positioned. . No acute bony abnormality. . Mild subpleural atelectasis within the lung bases. No consolidation. IMPRESSION: 1. 1.5 cm nodular soft tissue lesion within the anterior abdomen close the umbilical region. This may be present within the omentum. It is adjacent to the transverse colon and a small bowel loop. This could reflect an enlarged lymph node. Other considerations include an omental tumor implant, hyperdense small duplication cyst versus other process would be additional considerations. At the least, CT follow-up of this finding is recommended. Tissue diagnosis could be considered. 2. Small amount of pelvic free fluid without localized collection. 3. IUD position appears appropriate. 4. Small umbilical hernia. Dictated by Pito Hernandez MD @ 02/23/2017 12:33:39 PM Dictated by: Pito Hernandez MD @ 02/23/2017 12:34:14 (Electronic Signature) Report Signed by Proxy and Original Signed Document filed in the Medical Record. MTDD
--- NOTE | 2017-02-26 07:03 | HP ---
DATE OF : 1980 PRIMARY CARE PHYSICIAN: None PCP REQUESTING PHYSICIAN: Concerning question is abdominal pain. 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 The patient did not take the antibiotic and the patient has some pain p.o. and per patient, her pain persists. She got some Dilaudid in the emergency room and she went home with pain pills and the pain persists and she was up all night and this morning, she started become nauseated and also anorexic and pain is now more right lower quadrant and she decided to come back to the emergency room and get CT with IV contrast and p.o. contrast and the CT scan reading is having some free fluid in the pelvis but otherwise, everything is almost the same as yesterday, however, the thing new today is she became anorexic and nauseated and also pain is more right lower quadrant. She remarked that she did not take any antibiotics. PAST MEDICAL HISTORY: Same as dictated yesterday. The patient denied diabetes, [place], CVA, hypertension. PAST SURGICAL HISTORY: Normal vaginal delivery x2, x2, and laparoscopic cholecystectomy, and oral abscess drained twice and neck lymph node biopsy once. PHYSICAL EXAMINATION: HEENT: Normocephalic, atraumatic. Sclerae anicteric. LUNGS: Clear to auscultation. HEART: Regular rate and rhythm. ABDOMEN: Soft, but exquisite tenderness right at the McBurney point and with rebound tenderness and Rovsing sign is positive, and upon jumping, she is hurting very bad. IMPRESSION: Clinical exam and clinical history suggests it is deteriorating and now is more well localized. I had a long discussion with the patient that her presentation although is not classic, is atypical, but now is really pointing to the problem of appendix, although CT scan does not show it and CAT scan is only up to 97% accurate. The several options of the patient to go home and observe again. She does not like that idea. She wants to go to operating room, take out appendix and which is I believe is the right decision. Risks and benefits discussed with the patient including bleeding and infection and postop course and damage to nearby organ, etc., patient concurred to proceed as planned. On a CAT scan, there is some other situation show like umbilical hernia and a soft tissue, either tumor or lymph node and those are really not in the context of emergent surgery as they will be left alone and the patient will have a followup plan on this in the future. The patient is totally agreed with us in assessment. Also, the patient has been told that under emergency room doctor's hand, 8% of normal appendix being removed; under a surgeon's hand, there is about 1.5-2% chance of removing normal appendix. In that situation, the patient's source of pain may remain and will require more workup. The patient totally concurred and the patient still agree and would request to have appendix removed, proceed as possible open appendectomy. Risks and benefits discussed. As always, thank you for the kind referral. YVES PARK /[id number]
--- NOTE | 2017-02-27 06:33 | OR ---
SURGEON: Joaquin Callahan MD DATE OF PROCEDURE: 02/23/2017 PREOPERATIVE DIAGNOSIS: Acute appendicitis. POSTOPERATIVE DIAGNOSIS: Acute appendicitis. PROCEDURE PERFORMED: 1. Laparoscopic appendectomy. 2. Abdominal mass excision and biopsy. COMPLICATIONS: None. FINDIN. The appendix is alesha white, but is very hardened and hyperemic, consistent with acute appendicitis. 2. The soft-tissue tumor that was seen on the CAT scan in fact it is on the peritoneum under the abdominal muscle and is not in the mesentery where the GI tract is. Since it is concerned the patient, it was successfully removed and captured and sent for pathology. It was 1.5 cm hardened whitish color tissue which is well encapsulated on the peritoneum. PROCEDURE PERFORMED: The patient was taken to the operating room and placed in the supine position. Following induction of general endotracheal anesthesia, the patient's abdomen was prepped and draped in the sterile fashion. A time-out has been called. The patient was identified. The procedure was identified. The antibiotics were identified. The procedure then proceeded. The abdomen was prepped and draped in a standard fashion. After assessment of appropriate landmarks, a 12 millimeter trocar was inserted supraumbilically using Optiview and pneumoperitoneum was then achieved. This was followed with placement of 5 millimeter port in the right upper quadrant and another 5 millimeter port infraumbilically. The camera was inserted supraumbilical site and two laparoscopic Magdiel retractors were then inserted through the other two sites. Following the cecum, the appendix was located. The appendix was then lifted up, and using a GI stapler the appendix was amputated at the base. And using the GI stapler, the mesoappendix was then amputated. The appendix was retrieved by an endoscopic bag and sent for pathologist. This was then followed by re-insertion of the camera to examine the staple line, and hemostasis. The trocars were then removed. The umbilical site was closed with 2-0 Vicryl deep stitch and 4 -0 Vicryl and Dermabond; the other 2 5 mm port sites were closed with 4-0 Vicryl and Dermabond. The patient was then awakened, extubated, and transferred to the recovery room in hemodynamically stable condition. Prior to closing, sponge count and instrument count was correct. Dr. Callahan was present throughout the whole procedure. As always, thank you for the kind referral. A slightly differently in this particular case we used Pete to go in as the patient had several abdominal surgery and using a supraumbilical incision Pete technique to go in. Once we went in, used the finger to explore the abdominal wall, find the soft tissue mass that was seen in the CAT scan. As there was concern the patient would decide to have it biopsied, so then followed with a laparoscopic appendectomy surgery. When the surgery is over, we used the blunt and sharp dissection, took out the mass, and captured, and sent for pathology. The mass was 1.5 cm whitish color, hardened stuff. The appendix is pretty hyperemic and hardened, consistent with acute appendicitis. No gross perforation observed. The right ovary has cysts and peritoneal fluid was straw yellow color. As always, thank you for the kind referral. YVES PARK /[id number] MARIA ISABEL
== END 2017-02-24 10:40 | disposition home or self-care (01) ==
LOC: MW.ED 08:42 → MW.SDS 14:00 → MW.MS 16:44 → MW.SDS 02-24 10:40
PROVIDERS: ATTEND Surgery
PROC: 0DTJ4ZZ Resection of Appendix, Percutaneous Endoscopic Approach (ICD-10-PCS; principal; 2017-02-23)
PROC: 0DBW4ZZ Excision of Peritoneum, Percutaneous Endoscopic Approach (ICD-10-PCS; 2017-02-23)
DX: K35.80 Unspecified acute appendicitis (principal); L72.11 Pilar cyst; K21.9 Gastro-esophageal reflux disease without esophagitis; F32.9 Major depressive disorder, single episode, unspecified; F41.9 Anxiety disorder, unspecified; E66.9 Obesity, unspecified; Z68.30 Body mass index [BMI] 30.0-30.9, adult; Z90.49 Acquired absence of other specified parts of digestive tract; Z87.891 Personal history of nicotine dependence; Z79.899 Other long term (current) drug therapy
CPT/HCPCS: 44970; 49321; 74177; 80053; 81001; 81025; 82150; 83690; 85025; 88304; 96374; 99285; A9270; J1100; J1170; J1885; J2250; J2405; J3010; J7120; Q9967; 00840; J2704

== ENCOUNTER 2017-05-10 22:15 | Emergency (ER) | payer OTHER ==
[2017-05-10] MEDS ORDERED: Metoclopramide 10 MG/2 ML SDV IVPUSH ONE (22:48)
[2017-05-10] MEDS ORDERED: Ketorolac 30 MG/ML SDV IVPUSH ONE (22:49)
[2017-05-10] MEDS ORDERED: Ondansetron 4 MG/2 ML SDV IVPUSH ONE (22:49)
--- NOTE | 2017-05-10 22:52 | EDM.PDOC ---
ED HPI GENERAL MEDICAL PROBLEM - General Chief Complaint: Headache Stated Complaint: MIGRAINE Time Seen by Provider: 05/10/17 22:44 - History of Present Illness INITIAL COMMENTS - FREE TEXT/NARRATIVE: HISTORY AND PHYSICAL: History of present illness: Patient 36-year-old female history migraine headache presents with a concern of migraine this is been unresponsive to Imitrex she has had associated nausea she denies vomiting no fever chills trauma or other concern patient has had prior workup including imaging of her brain per history patient had Benadryl and Imitrex prior to arrival Review of systems: As per history of present illness and below otherwise all systems reviewed and negative. Past medical history: As per history of present illness and as reviewed below otherwise noncontributory. Surgical history: As per history of present illness and as reviewed below otherwise noncontributory. Social history: No reported history of drug or alcohol abuse. Family history: As per history of present illness and as reviewed below otherwise noncontributory. Physical exam: HEENT: Atraumatic, normocephalic, pupils reactive, negative for conjunctival pallor or scleral icterus, mucous membranes moist, throat clear, neck supple, nontender, trachea midline. Lungs: Clear to auscultation, breath sounds equal bilaterally, chest nontender. Heart: S1S2, regular, negative for clicks, rubs, or JVD. Abdomen: Soft, nondistended, nontender. Negative for masses or hepatosplenomegaly. Negative for costovertebral tenderness. Pelvis: Stable nontender. Genitourinary: Deferred. Rectal: Deferred. Extremities: Atraumatic, negative for cords or calf pain. Neurovascular unremarkable. Neuro: Awake, alert, oriented. Cranial nerves II through XII unremarkable. Cerebellum unremarkable. Motor and sensory unremarkable throughout. Exam nonfocal. Diagnostics: None Therapeutics: Normal saline and Toradol 30 mg IV Zofran 4 mg IV Reglan 10 mg IV Impression: #1 migraine headache Definitive disposition and diagnosis as appropriate pending reevaluation and review of above. - Related Data Allergies Allergy/AdvReac Type Severity Reaction Status Date / Time No Known Allergies Allergy Verified 02/23/17 08:51 Home Meds: Home Meds DULoxetine [Cymbalta] 30 mg PO DAILY 02/04/16 [History] Omeprazole Magnesium [Prilosec Otc] 20 mg PO DAILY 02/04/16 [History] Loratadine [Claritin] 1 tab PO DAILY PRN 04/11/16 [History] Gabapentin [Neurontin] 300 mg PO BEDTIME 02/22/17 [History] buPROPion HCl [Wellbutrin Xl] 300 mg PO DAILY 02/22/17 [History] Acetaminophen/oxyCODONE [Percocet 325-5 MG] 1 tab PO Q6H PRN #30 tablet [Rx] Docusate Sodium [Colace] 100 mg PO DAILY #5 cap 02/23/17 [Rx] Past Medical History Cardiovascular History: Reports: None Respiratory History: Reports: None Gastrointestinal History: Reports: Cholelithiasis, GERD 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: Musculoskeletal History: Reports: Back Pain, Chronic, Fracture Neurological History: Reports: None Psychiatric History: Reports: Anxiety, Depression Endocrine/Metabolic History: Reports: Obesity/BMI 30+, Other (See Below) Other Endocrine/Metabolic History: low blood surgar at times Hematologic History: Reports: None Immunologic History: Reports: None Dermatologic History: Reports: None - Past Surgical History Female Surgical History: Reports: Section Social & Family History - Family History Family Medical History: Noncontributory - Tobacco Use Smoking Status *Q: Former Smoker Years of Tobacco use: 15 Packs/Tins Daily: 1 Used Tobacco, but Quit: Yes Month Tobacco Last Used: 6 - Caffeine Use Caffeine Use: Reports: Coffee Caffeine Use Comment: 12 cups avg per day - Recreational Drug Use Recreational Drug Use: No Drug Use in Last 12 Months: No ED ROS GENERAL - Review of Systems Review Of Systems: ROS reveals no pertinent complaints other than HPI. ED EXAM, GENERAL - Physical Exam Exam: See Below (See dictation) Course - Orders/Labs/Meds Orders: Active Orders 24 hr Category Date Time Status Ketorolac [Toradol] Med 05/10/17 22:49 Once 30 mg IVPUSH ONETIME ONE Metoclopramide [Reglan] Med 05/10/17 22:48 Once 10 mg IVPUSH ONETIME ONE Ondansetron [Zofran] Med 05/10/17 22:49 Once 4 mg IVPUSH ONETIME ONE Sodium Chloride 0.9% [Normal Saline] 1,000 ml Med 05/10/17 23:00 Ordered IV ASDIRECTED Meds: Medications Discontinued Medications Generic Name Dose Route Start Last Admin Trade Name Jamal PRN Reason Stop Dose Admin Ketorolac Tromethamine 30 mg 05/10/17 22:49 Toradol IVPUSH 05/10/17 22:50 ONETIME ONE Departure - Departure Time of Disposition: 22:52 Disposition: Home, Self-Care 01 Condition: Good Clinical Impression: Migraine - Discharge Information Forms: ED Department Discharge Additional Instructions: The following information is given to patients seen in the emergency department who are being discharged to home. This information is to outline your options for follow-up care. We provide all patients seen in our emergency department with a follow-up referral. The need for follow-up, as well as the timing and circumstances, are variable depending upon the specifics of your emergency department visit. If you don't have a primary care physician on staff, we will provide you with a referral. We always advise you to contact your personal physician following an emergency department visit to inform them of the circumstance of the visit and for follow-up with them and/or the need for any referrals to a consulting specialist. The emergency department will also refer you to a specialist when appropriate. This referral assures that you have the opportunity for followup care with a specialist. All of these measure are taken in an effort to provide you with optimal care, which includes your followup. Under all circumstances we always encourage you to contact your private physician who remains a resource for coordinating your care. When calling for followup care, please make the office aware that this follow-up is from your recent emergency room visit. If for any reason you are refused follow-up, please contact the [facility] emergency department at and asked to speak to the emergency department charge nurse. Continue current meds follow primary medical doctor wanted today's return as needed as discussed - My Orders Last 24 Hours: My Active Orders 05/10/17 22:48 Metoclopramide [Reglan] 10 mg IVPUSH ONETIME ONE 05/10/17 22:49 Ketorolac [Toradol] 30 mg IVPUSH ONETIME ONE Ondansetron [Zofran] 4 mg IVPUSH ONETIME ONE 05/10/17 23:00 Sodium Chloride 0.9% [Normal Saline] 1,000 ml IV ASDIRECTED - Assessment/Plan Last 24 Hours: My Active Orders 05/10/17 22:48 Metoclopramide [Reglan] 10 mg IVPUSH ONETIME ONE 05/10/17 22:49 Ketorolac [Toradol] 30 mg IVPUSH ONETIME ONE Ondansetron [Zofran] 4 mg IVPUSH ONETIME ONE 05/10/17 23:00 Sodium Chloride 0.9% [Normal Saline] 1,000 ml IV ASDIRECTED
[2017-05-10] MEDS ORDERED: Sodium Chloride 0.9% 1,000 ML IV SCH (23:00)
[2017-05-11 00:33] VITALS: BP 128/78
== END 2017-05-11 00:30 | disposition home or self-care (01) ==
LOC: MW.ED 22:15
DX: G43.909 Migraine, unspecified, not intractable, without status migrainosus (principal); K21.9 Gastro-esophageal reflux disease without esophagitis; E66.9 Obesity, unspecified; Z87.891 Personal history of nicotine dependence; Z79.899 Other long term (current) drug therapy; Z68.35 Body mass index [BMI] 35.0-35.9, adult
CPT/HCPCS: 96361; 96374; 96375; 99283; J1885; J2405; J2765; J7040

== ENCOUNTER 2017-07-18 11:25 | Day surgery (SDC) | payer OTHER ==
[~2017-07-18 11:25] MED LIST: Lactated Ringers 1,000 ML IV SCH; ceFAZolin 2 GM in Premix Bag 1 BAG IV ONE
--- NOTE | 2017-07-18 12:37 | PCM.PREANE ---
Preanesthetic Assessment - Anesthesia/Transfusion/Family Hx Anesthesia History: Prior Anesthesia Without Reaction Family History of Anesthesia Reaction: No Transfusion History: No Prior Transfusion(s) - Review of Systems General: No Symptoms Pulmonary: No Symptoms Cardiovascular: No Symptoms Gastrointestinal: No Symptoms Neurological: No Symptoms Other: Reports: None - Physical Assessment NPO Status Date: 07/17/17 Height: 1.68 m Weight: 101.151 kg ASA Class: 2 Mental Status: Alert & Oriented x3 Airway Class: Mallampati = 2 Dentition: Reports: Normal Dentition ROM/Head Extension: Full Lungs: Clear to Auscultation, Normal Respiratory Effort Cardiovascular: Regular Rate, Regular Rhythm - Allergies Allergies/Adverse Reactions: Allergies Allergy/AdvReac Type Severity Reaction Status Date / Time No Known Allergies Allergy Verified 02/23/17 08:51 - Anesthesia Plan Pre-Op Medication Ordered: None - Acknowledgements Anesthesia Type Planned: General Anesthesia Pt an Appropriate Candidate for the Planned Anesthesia: Yes Alternatives and Risks of Anesthesia Discussed w Pt/Guardian: Yes Pt/Guardian Understands and Agrees with Anesthesia Plan: Yes PreAnesthesia Questionnaire Cardiovascular History: Reports: None Respiratory History: Reports: None Gastrointestinal History: Reports: Cholelithiasis, GERD 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: Musculoskeletal History: Reports: Back Pain, Chronic, Fracture Other Musculoskeletal History: hx fx ankle Neurological History: Reports: Migraines Psychiatric History: Reports: Anxiety, Depression Endocrine/Metabolic History: Reports: Obesity/BMI 30+, Other (See Below) Hematologic History: Reports: None Immunologic History: Reports: None Dermatologic History: Reports: None - Past Surgical History Head Surgeries/Procedures: Reports: None HEENT Surgical History: Reports: LASIK GI Surgical History: Reports: Appendectomy, Cholecystectomy Other GI Surgeries/Procedures: hx exc of pilonidal cyst Female Surgical History: Reports: Section, Other (See Below) Other Female Surgeries/Procedures: lymph node bx Other Oncologic Surgeries/Procedures: hx lymph node biopsy x2 - SUBSTANCE USE Smoking Status *Q: Former Smoker Tobacco Use Within Last Twelve Months: Cigarettes Second Hand Smoke Exposure: No Recreational Drug Use History: No - HOME MEDS Home Medications: Home Meds DULoxetine [Cymbalta] 30 mg PO DAILY 02/04/16 [History] Omeprazole Magnesium [Prilosec Otc] 20 mg PO DAILY 02/04/16 [History] Loratadine [Claritin] 1 tab PO DAILY PRN 04/11/16 [History] Gabapentin [Neurontin] 300 mg PO BEDTIME PRN 02/22/17 [History] buPROPion HCl [Wellbutrin Xl] 300 mg PO DAILY 02/22/17 [History] Levofloxacin [Levaquin] 1 tab PO DAILY 07/15/17 [History] SUMAtriptan Succinate [Imitrex] 100 g PO ASDIRECTED PRN 07/15/17 [History] metroNIDAZOLE [Flagyl] 1 tab PO BID 07/15/17 [History] - CURRENT (IN HOUSE) MEDS Current Meds: Current Medications Lactated Ringer's (Ringers, Lactated) 1,000 mls @ 125 mls/hr IV ASDIRECTED REYNA Last Admin: 07/18/17 12:27 Dose: 125 mls/hr Discontinued Medications Cefazolin Sodium/Dextrose 2 gm (/ Premix) 50 mls @ 100 mls/hr IV ONETIME ONE Stop: 07/18/17 05:29
[2017-07-18] MEDS ORDERED: Propofol 200 MG/20 ML SDV ONE (13:35)
[2017-07-18] MEDS ORDERED: Midazolam 1 MG/ML 2 ML SDV ONE (13:35)
[2017-07-18] MEDS ORDERED: Rocuronium 10 MG/ML 10 ML Syringe ONE (13:35)
[2017-07-18] MEDS ORDERED: Ondansetron 4 MG/2 ML SDV ONE (13:35)
[2017-07-18] MEDS ORDERED: Lidocaine 2% 5 ML SDV ONE (13:35)
[2017-07-18] MEDS ORDERED: Dexamethasone 4 MG/ML 5 ML MDV ONE (13:35)
[2017-07-18] MEDS ORDERED: fentaNYL 100 MCG/2 ML SDV ONE ×2 (13:35→17:17)
[2017-07-18] MEDS ORDERED: fentaNYL 100 MCG/2 ML SDV IVPUSH PRN (14:19)
[2017-07-18] MEDS ORDERED: Acetaminophen/oxyCODONE 325-10 MG Tab PO ONE (14:50)
[2017-07-18] MEDS ORDERED: HYDROmorphone 2 MG/ML Syringe ONE (15:16)
--- NOTE | 2017-07-18 18:02 | PCM.OPNOTE ---
- General Post-Op/Procedure Note Date of Surgery/Procedure: 07/18/17 Operative Procedure(s): incarcerated umb hernia and ventral hernia repair w mesh Findings: ventral hernia 4 X 2 cm, 2cm from umb hernia w incarcerated omentum, repair w mesh as one hernia; [id number] Pre Op Diagnosis: umb hernia and ventral hernia Post-Op Diagnosis: Same Anesthesia Technique: General ET Tube Primary Surgeon: Joaquin Callahan Pathology: hernia sac Complications: None Condition: Good
[2017-07-18] MEDS ORDERED: Ondansetron 4 MG/2 ML SDV IVPUSH PRN (18:04)
[2017-07-18] MEDS ORDERED: Acetaminophen/oxyCODONE 325-5 MG Tab PO PRN (18:08)
[2017-07-18] MEDS ORDERED: Lactated Ringers 1,000 ML IV SCH (18:15)
--- NOTE | 2017-07-18 18:15 | PCM.POSTAN ---
POST ANESTHESIA ASSESSMENT - MENTAL STATUS Mental Status: Alert, Oriented - RESPIRATORY Respiratory Status: Respiratory Rate WNL, Airway Patent, O2 Saturation Stable - CARDIOVASCULAR CV Status: Pulse Rate WNL, Blood Pressure Stable - GASTROINTESTINAL GI Status: No Symptoms - PAIN Pain Score: 5 - POST OP HYDRATION Hydration Status: Adequate & Stable
[2017-07-18] MEDS ORDERED: Acetaminophen 1,000 MG in Premix Bag 1 BAG IV ONE (18:21)
--- NOTE | 2017-07-19 00:46 | OR ---
SURGEON: Joaquin Callahan MD DATE OF PROCEDURE: 07/18/2017 PREOPERATIVE DIAGNOSIS: Incarcerated umbilical hernia and ventral hernia. POSTOPERATIVE DIAGNOSIS: Incarcerated umbilical hernia and ventral hernia. PROCEDURE PERFORMED: Repair of above with mesh. COMPLICATIONS: None. FINDINGS: Umbilical hernia about the size of 8 mm with incarcerated omentum and probably source of the patient's pain, and a ventral hernia measuring 4 x 2 cm and is about 2 cm from the umbilical hernia. Both hernia mixed into one, and a custom- made mesh 10 x 15 was used. PROCEDURE IN DETAIL: The patient was taken to the operating room and placed in a supine position. Upon induction of general endotracheal anesthesia, the patient's abdomen was prepped and draped in a sterile fashion, and time-out was being called. The patient was identified, procedure identified, and antibiotic identified. Procedure was then started. Ioban was applied prophylactically. 2 g IV Ancef was given prophylactically. After assessment of appropriate landmark, a midline incision was made from prior surgical scar and beveled to the right of the umbilicus and below, and carefully dissected down to expose the hernia after delineating the boundary. The hernia had some adhesion. We carefully took down the adhesion, and the boundary was 4 cm longitudinal, 2 cm wide. However, the patient also had umbilical hernia and I carefully dissected around the umbilical stalk. The umbilical hernia was 8 mm in diameter and was about 2 cm below the lower margin of the hernia sac. These were mixed into about 5 x 3 cm, and a custom-made a 10 x 15 mesh was used, Dulex from [employer] and using 0 Ethibond and 0 Prolene, the mesh was incorporated, followed by using 2-0 Vicryl to reduce the space and the umbilicus also tacked down to recreate the umbilicus, and skin approximated by the use of skin staple and followed by appropriate dressing. An abdominal binder was applied. The patient was then awakened, extubated, and transferred to the recovery room in hemodynamically stable condition. The patient tolerated the procedure well. There were no intraoperative complications. Dr. Callahan was present throughout the procedure. As always, thank you for the kind referral. YVES / XAVIER /[id number] MARIA ISABEL
[2017-07-19 03:43] VITALS: BP 132/65
== END 2017-07-18 21:30 | disposition home or self-care (01) ==
LOC: MW.SDS 11:25 → MW.MS 18:58 → MW.SDS 21:30
PROVIDERS: ATTEND Surgery
DX: K42.9 Umbilical hernia without obstruction or gangrene (principal); K43.9 Ventral hernia without obstruction or gangrene; F41.9 Anxiety disorder, unspecified; K21.9 Gastro-esophageal reflux disease without esophagitis; F32.9 Major depressive disorder, single episode, unspecified; E66.9 Obesity, unspecified; Z90.49 Acquired absence of other specified parts of digestive tract; Z79.899 Other long term (current) drug therapy; Z98.890 Other specified postprocedural states; F17.210 Nicotine dependence, cigarettes, uncomplicated
CPT/HCPCS: 36415; 49560; 49568; 49585; 84703; A9270; C1781; J1100; J1170; J2250; J2405; J3010; J7120; 00830; 88302; J2704